=== PATIENT | female | born 1970 | race Caucasian/White ===

== ENCOUNTER 2022-05-18 14:20 | Emergency (ER) | payer MEDICAID ==
[~2022-05-18] VITALS: Ht 162.6 cm; Wt 66.0 kg
[2022-05-18 18:19] LABS: BASOPHILS % 0.4 % (0.0-2.0); EOSINOPHILS % 0.6 % (0.0-5.0); HEMATOCRIT. 40.6 % (36.0-48.0); HEMOGLOBIN. 13.8 g/dL (12.0-16.0); MEAN CORPUSCULAR HEMOGLOBIN 30.1 pg (28.0-32.0); MEAN CORPUSCULAR VOLUME 88.8 fL (81.0-99.0); MEAN PLATELET VOLUME 7.2 fl (7.4-10.4); PLATELET 291 x1000/uL (130-400); RED BLOOD CELL COUNT 4.58 mill/uL (4.2-5.4); RED CELL DISTRIBUTION WIDTH 13.4 % (11.6-14.6)
[2022-05-18 18:28] LABS: CHLORIDE 102 mEq/L (98-107)
[2022-05-18] MEDS ORDERED: ACETAMINOPHEN 325MG TABLET PO ONE (22:45)
[2022-05-19] MEDS ORDERED: TOPUD PO (01:45)
[2022-05-19 02:00] VITALS: BP 104/46
== END 2022-05-19 02:40 | disposition home or self-care (01) ==
LOC: ER 14:20
DX: K80.50 Calculus of bile duct without cholangitis or cholecystitis without obstruction (principal); R55 Syncope and collapse; Z88.6 Allergy status to analgesic agent
CPT/HCPCS: 36415; 70486; 71045; 72052; 76705; 80053; 83880; 84484; 85025; 93005; 99285